=== PATIENT | female | born 1955 | race Hispanic/Latino ===

== ENCOUNTER → 2018-05-03 | Outpatient (CLI) | payer MEDICARE ==
[~2018-05-03] VITALS: Ht 152.4 cm; Wt 73.9 kg
[~2018-05-03] MED LIST: AMLO5TAB5 PO; ASPI-1197 PO; FURO-152 PO; GEMF600T5 PO; INSU100I3 SQ; INSU3INS5 SQ; METO100T7 PO; REGADENOSON 0.4 MG/5 ML PF SYG IVP SCH; SIMV40TA59 PO
== END | disposition home or self-care (01) ==
LOC: SHCH 08:18
PROVIDERS: ATTEND Internal Medicine Cardiovascular Disease
DX: R06.02 Shortness of breath (principal)
CPT/HCPCS: 78452; 93017; 96374; A9500 ×2; J2785

== ENCOUNTER → 2019-06-04 | Outpatient (CLI) | payer MEDICARE ==
[~2019-06-04] MED LIST changes: -REGADENOSON 0.4 MG/5 ML PF SYG IVP SCH
== END | disposition home or self-care (01) ==
LOC: SHCH 09:25
PROVIDERS: ATTEND Internal Medicine Cardiovascular Disease
DX: I87.2 Venous insufficiency (chronic) (peripheral) (principal); K21.9 Gastro-esophageal reflux disease without esophagitis
CPT/HCPCS: 93970

== ENCOUNTER 2019-06-05 09:24 | Emergency (ER) | payer MEDICARE ==
[2019-06-05 10:05] LABS: BASOPHILS % (AUTO) 0.8 % (0.0-5.0); EOSINOPHILS % (AUTO) 4.2 % (0.0-8.0); HEMATOCRIT 35.6 % (36-48); MEAN CORPUSCULAR HEMOGLOBIN 28.8 pg (27.0-33.0); MEAN CORPUSCULAR HGB CONC 32.6 g/dL (32.0-36.0); MEAN CORPUSCULAR VOLUME 88.3 fL (79-99); NEUTROPHILS % (AUTO) 67.7 % (40.0-77.0); PLATELET COUNT (AUTO) 197 K/uL (130-400); RED BLOOD CELL COUNT(AUTO) 4.03 MIL/uL (4.00-5.50); RED CELL DISTRIBUTION WIDTH 14.4 % (11.0-15.5); WHITE BLOOD COUNT (AUTO) 6.2 K/uL (4.8-10.8)
[2019-06-05 10:16] LABS: CREATININE 2.7 mg/dL (0.5-1.5); POTASSIUM 3.1 mmol/L (3.5-5.1)
[2019-06-05 10:18] LABS: INR 1.06 (0.85-1.15); PARTIAL THROMBOPLASTIN TIME 27.4 SEC (26.3-35.5); PROTHROMBIN TIME 11.4 SEC (9.6-11.6)
[2019-06-05 10:21] LABS: ALBUMIN 2.9 g/dL (3.5-5.0); BILIRUBIN,TOTAL 0.7 mg/dL (0.2-1.0); TOTAL PROTEIN, SERUM 8.3 g/dL (6.0-8.3)
--- NOTE | 2019-06-05 16:25 | NUR ---
U/S GD PARACENTESIS PROCEDURE PERFORMED BY DR Chloe BLACK. PUNCTURE SITE RLQ AND PATIENT TOLERATED PROCEDURE WELL. TOTAL REMOVED 8.4 LITERS OF CLOUDY YELLOW FLUID. END OF PROCEDURE AT 1615. CATHETER REMOVED AND DRESSING APPLIED. NO BLEEDING NOTED. REPORT GIVEN TO Fernando FTICH RN AND PATIENT TRANSPORTED TO ED 13 VIA STRETCHER AT 1625. AAO X3 WITH NO C/O PAIN. ALBUMIN 25% 50 GRAMS IV GIVEN PER [facility] ALBUMIN PROTOCOL. SPECIMEN SENT TO LAB.
[2019-06-05] MEDS ORDERED: ALBUMIN (HUMAN) 25% 200 ML IV ONE (16:38)
[2019-06-05 17:50] LABS: APPEARANCE BODY FLUID CLEAR (CLEAR); BODY FLUID RBC 89 /cu. mm.; BODY FLUID WBC 115 /cu. mm.; COLOR,BODY FLUID YELLOW (LT YELLOW); SPECIMENTYPE,BODY FLUID ASCITES; TOTAL VOLUME,BODY FLUID 8400 mL
[2019-06-05 18:58] LABS: BF LYMPHOCYTE 13 %; BF MESOTHELIAL 1 %; BF MONOCYTE 3 %; BF OTHER CELLS 5
== END 2019-06-05 18:05 | disposition home or self-care (01) ==
LOC: EDH 09:24
DX: R18.8 Other ascites (principal); K74.69 Other cirrhosis of liver; I25.10 Atherosclerotic heart disease of native coronary artery without angina pectoris; E11.9 Type 2 diabetes mellitus without complications; E78.00 Pure hypercholesterolemia, unspecified; I10 Essential (primary) hypertension; K21.9 Gastro-esophageal reflux disease without esophagitis; Z88.2 Allergy status to sulfonamides
CPT/HCPCS: 36415; 49083; 70450; 71045; 74176; 80053; 82042; 82105; 85025; 85610; 85730; 87071; 87205; 89051; 93005; 96365; 99285; A4215; P9046

== ENCOUNTER → 2019-07-11 | Outpatient (CLI) | payer MEDICARE ==
[~2019-07-11] MED LIST changes: +ALBUMIN (HUMAN) 25% 200 ML IV SCH
[2019-07-11 08:13] LABS: EOSINOPHILS % (AUTO) 7.1 % (0.0-8.0); HEMATOCRIT 38.1 % (36-48); LYMPHOCYTES % (AUTO) 17.3 % (21.0-51.0); MEAN CORPUSCULAR HEMOGLOBIN 29.3 pg (27.0-33.0); MEAN CORPUSCULAR VOLUME 91.4 fL (79-99); MONOCYTES % (AUTO) 9.1 % (3.0-13.0); NEUTROPHILS % (AUTO) 64.7 % (40.0-77.0); PLATELET COUNT (AUTO) 201 K/uL (130-400); RED BLOOD CELL COUNT(AUTO) 4.17 MIL/uL (4.00-5.50); RED CELL DISTRIBUTION WIDTH 14.3 % (11.0-15.5); WHITE BLOOD COUNT (AUTO) 7.2 K/uL (4.8-10.8)
[2019-07-11 08:28] LABS: INR 0.99 (0.85-1.15); PROTHROMBIN TIME 10.7 SEC (9.6-11.6)
[2019-07-11 08:33] LABS: ALBUMIN 3.1 g/dL (3.5-5.0); BILIRUBIN,TOTAL 0.5 mg/dL (0.2-1.0); CREATININE 3.5 mg/dL (0.5-1.5); POTASSIUM 4.4 mmol/L (3.5-5.1); TOTAL PROTEIN, SERUM 8.4 g/dL (6.0-8.3)
--- NOTE | 2019-07-11 08:55 | NUR ---
U/S GD PARACENTESIS PROCEDURE PERFORMED BY DR. CERVANTES. PUNCTURE SITE RIGHT LOWER QUADRANT OF ABDOMEN AND PATIENT TOLERATED PROCEDURE WELL. TOTAL REMOVED 7.1 LITERS OF CLOUDY YELLOW FLUID. END OF PROCEDURE AT 0920. CATHETER REMOVED AND DRESSING APPLIED. NO BLEEDING NOTED. ALBUMIN 25% 50 GRAMS GIVEN DURING PROCEDURE PER [facility]UMIN PROTOCOL. RIGHT FOREARM PIV DC'D, BANDAID APPLIED, DRESSING DRY AND INTACT. DISCHARGE INSTRUCTIONS GIVEN TO PATIENT. PATIENT VERBALIZED UNDERSTANDING. PT DISCHARGED AMBULATORY, STABLE, AAO X3 WITH NO C/O PAIN. SPECIMEN SENT TO LAB.
[2019-07-11 13:35] LABS: ALBUMIN,BODY FLUID 2.3 g/dL
[2019-07-11 14:07] LABS: APPEARANCE BODY FLUID CLEAR (CLEAR); COLOR,BODY FLUID YELLOW (LT YELLOW); SPECIMENTYPE,BODY FLUID ASCITES
[2019-07-11 14:08] LABS: BODY FLUID RBC 210 /cu. mm.; BODY FLUID WBC 128 /cu. mm.; TOTAL VOLUME,BODY FLUID 7100 mL
[2019-07-11 14:13] LABS: BF LYMPHOCYTE 4 %; BF MESOTHELIAL 87 %; BF MONOCYTE 5 %
== END | disposition home or self-care (01) ==
LOC: RAH 07:22
PROVIDERS: ATTEND Internal Medicine Gastroenterology
DX: R18.8 Other ascites (principal); E11.22 Type 2 diabetes mellitus with diabetic chronic kidney disease; I12.0 Hypertensive chronic kidney disease with stage 5 chronic kidney disease or end stage renal disease; N18.6 End stage renal disease; E78.5 Hyperlipidemia, unspecified; I25.10 Atherosclerotic heart disease of native coronary artery without angina pectoris; Z79.899 Other long term (current) drug therapy; Z79.82 Long term (current) use of aspirin; Z86.010 Personal history of colon polyps; Z87.19 Personal history of other diseases of the digestive system; Z95.1 Presence of aortocoronary bypass graft
CPT/HCPCS: 36415; 49083; 80053; 82042; 84157; 85025; 85610; 87071; 87205; 89051; A4215; P9046; 96365

== ENCOUNTER → 2019-09-05 | Outpatient (CLI) | payer MEDICARE ==
[~2019-09-05] MED LIST changes: +ALBUMIN (HUMAN) 25% 200 ML IV ONE; -ALBUMIN (HUMAN) 25% 200 ML IV SCH; +APIX2.5T PO; +AZIT500T2 PO; +DEXA6TAB PO
[2019-09-05 08:29] LABS: HEMATOCRIT 34.4 % (36-48); MEAN CORPUSCULAR HEMOGLOBIN 29.1 pg (27.0-33.0); MEAN CORPUSCULAR HGB CONC 31.7 g/dL (32.0-36.0); PLATELET COUNT (AUTO) 195 K/uL (130-400); RED BLOOD CELL COUNT(AUTO) 3.74 MIL/uL (4.00-5.50); WHITE BLOOD COUNT (AUTO) 6.7 K/uL (4.8-10.8)
[2019-09-05 08:43] LABS: INR 0.99 (0.85-1.15); PROTHROMBIN TIME 10.7 SEC (9.6-11.6)
[2019-09-05 09:05] LABS: BASOPHILS % (MANUAL) 2 % (0-2); EOSINOPHILS % (MANUAL) 6 % (1-6); LYMPHOCYTES % (MANUAL) 18 % (22-44); MONOCYTES % (MANUAL) 4 % (2-9); SEGMENTED NEUTROPHILS % 70 % (40-70)
[2019-09-05 09:06] LABS: MAN.DIFF COMMENT-IMPRESSION MANUAL DIFFERENTIAL; PLATELET MORPHOLOGY COMMENT ADEQUATE
--- NOTE | 2019-09-05 09:30 | NUR ---
U/S GD PARACENTESIS PROCEDURE PERFORMED BY DR. ANTONIO. PUNCTURE SITE RIGHT LOWER QUADRANT OF ABDOMEN AND PATIENT TOLERATED PROCEDURE WELL. TOTAL REMOVED 5 LITERS OF CLOUDY YELLOW FLUID. END OF PROCEDURE AT 1000. CATHETER REMOVED AND DRESSING APPLIED. NO BLEEDING NOTED. ALBUMIN 25% 50 GRAMS GIVEN DURING PROCEDURE [place] [facility]. RIGHT WRIST PIV DC'D, BANDAID APPLIED, DRESSING DRY AND INTACT. DISCHARGE INSTRUCTIONS GIVEN TO PATIENT. PATIENT VERBALIZED UNDERSTANDING. PT DISCHARGED VIA W/C, STABLE, AAO X3 WITH NO C/O PAIN. SPECIMEN SENT TO LAB.
[2019-09-05 09:34] LABS: ALBUMIN 3.8 g/dL (3.5-5.0); BILIRUBIN,TOTAL 0.4 mg/dL (0.2-1.0); POTASSIUM 4.4 mmol/L (3.5-5.1); TOTAL PROTEIN, SERUM 8.7 g/dL (6.0-8.3)
[2019-09-05 17:53] LABS: SPECIMENTYPE,BODY FLUID ASCITES
[2019-09-05 17:54] LABS: APPEARANCE BODY FLUID SLIGHTLY CLOUDY (CLEAR); COLOR,BODY FLUID DARK YELLOW (LT YELLOW); TOTAL VOLUME,BODY FLUID 5000 mL
[2019-09-05 17:57] LABS: BODY FLUID WBC 92 /cu. mm.
[2019-09-05 17:59] LABS: BODY FLUID RBC 598 /cu. mm.
[2019-09-05 18:26] LABS: BF LYMPHOCYTE 37 %; BF MONOCYTE 1 %; BF OTHER CELLS 18
[2019-09-06 08:13] LABS: HEPATITIS A ANTIBODY IGM Negative (Negative); HEPATITIS Bs ANTIGEN SCREEN P Negative (Negative)
== END | disposition home or self-care (01) ==
LOC: RAH 07:22
PROVIDERS: ATTEND Internal Medicine Gastroenterology
DX: R18.8 Other ascites (principal); I25.10 Atherosclerotic heart disease of native coronary artery without angina pectoris; I12.0 Hypertensive chronic kidney disease with stage 5 chronic kidney disease or end stage renal disease; E11.22 Type 2 diabetes mellitus with diabetic chronic kidney disease; N18.6 End stage renal disease; E78.5 Hyperlipidemia, unspecified; R93.3 Abnormal findings on diagnostic imaging of other parts of digestive tract; Z79.82 Long term (current) use of aspirin; Z79.899 Other long term (current) drug therapy; Z95.1 Presence of aortocoronary bypass graft; Z86.010 Personal history of colon polyps
CPT/HCPCS: 36415; 49083; 80053; 82172; 82247; 82977; 83010; 83883; 84460; 85025; 85610; 86304; 86704; 86706; 86708; 86709; 87071; 87205; 87340; 87520; 88112; 88305; 89051; 96365; A4215; P9046

== ENCOUNTER 2019-09-18 08:50 | Inpatient (IN) | payer MEDICARE ==
[~2019-09-18] VITALS: Ht 149.9 cm; Wt 61.4 kg
[~2019-09-18 08:50] MED LIST changes: -ALBUMIN (HUMAN) 25% 200 ML IV ONE; -APIX2.5T PO; -AZIT500T2 PO; -DEXA6TAB PO
[2019-09-18] MEDS ORDERED: METHYLPREDNISOLONE SOD SUCC 40MG/ML 1ML ONE (09:55)
[2019-09-18] MEDS ORDERED: ONDANSETRON HCL 4 MG/2 ML VIAL ONE ×2 (09:55→22:29)
[2019-09-18] MEDS ORDERED: CEFTRIAXONE SODIUM 2 GM VIAL ONE (09:56)
[2019-09-18 10:35] LABS: BASOPHILS % (AUTO) 0.2 % (0.0-5.0); MEAN CORPUSCULAR HEMOGLOBIN 29.8 pg (27.0-33.0)
[2019-09-18 10:39] LABS: HEMATOCRIT 34.7 % (36-48); LYMPHOCYTES % (AUTO) 10.7 % (21.0-51.0); MONOCYTES % (AUTO) 9.5 % (3.0-13.0); NEUTROPHILS % (AUTO) 78.8 % (40.0-77.0); PLATELET COUNT (AUTO) 151 K/uL (130-400); RED BLOOD CELL COUNT(AUTO) 3.73 MIL/uL (4.00-5.50); RED CELL DISTRIBUTION WIDTH 14.1 % (11.0-15.5); WHITE BLOOD COUNT (AUTO) 5.1 K/uL (4.8-10.8)
[2019-09-18 10:42] LABS: CARBON DIOXIDE 25 mmol/L (21-32); CHLORIDE 95 mmol/L (101-111); CREATININE 5.4 mg/dL (0.5-1.5); GLOMERULAR FILTR. RATE CALC 9 mL/min (>60); GLUCOSE,RANDOM 119 mg/dL (70-105); POTASSIUM 4.9 mmol/L (3.5-5.1); SODIUM SERUM 136 mmol/L (136-145); UREA NITROGEN, BLOOD 40 mg/dL (7-18)
[2019-09-18 10:44] LABS: PROTHROMBIN TIME 10.8 SEC (9.6-11.6)
[2019-09-18 10:57] LABS: ALANINE AMINOTRANSFERASE 24 U/L (12-78); ALBUMIN 3.6 g/dL (3.5-5.0); ASPARTATE AMINOTRANSFERASE 45 U/L (10-37); BILIRUBIN,TOTAL 0.4 mg/dL (0.2-1.0); CREATINE KINASE, TOTAL 33 U/L (21-232); MYOGLOBIN 125 ng/mL (10-92); TOTAL PROTEIN, SERUM 7.7 g/dL (6.0-8.3); TROPONIN I < 0.04 ng/mL (0.00-0.06)
[2019-09-18] MEDS ORDERED: ERGOCALCIFEROL (VITAMIN D2) 50,000 UNIT CAPSULE PO SCH (12:30)
[2019-09-18] MEDS ORDERED: DOXYCYCLINE 100MG+NS 250ML IV SCH (12:30)
[2019-09-18] MEDS ORDERED: ERGOCALCIFEROL (VITAMIN D2) 50,000 UNIT CAPSULE ONE (13:24)
[2019-09-18] MEDS ORDERED: DOXYCYCLINE 100MG+NS 250ML 250 ML IV ONE (13:25)
[2019-09-18] MEDS: METHYLPREDNISOLONE SOD SUCC 40MG/ML 1ML IVP SCH ×2 (14:00→21:00)
[2019-09-18 16:18] LABS: APPEARANCE,URINE Cloudy (CLEAR); BILIRUBIN,URINE Negative (NEGATIVE); COLOR,URINE Yellow (YELLOW); GLUCOSE, URINE (UA) Negative (NEGATIVE); KETONES,URINE Trace mg/dL (NEGATIVE); LEUKOCYTE ESTERASE ,URINE Trace (NEGATIVE); NITRATE,URINE Negative (NEGATIVE); OCCULT BLOOD,URINE Negative (NEGATIVE); PH,URINE 7.5 (5.0-8.0); PROTEIN,URINE 300 mg/dL (NEGATIVE)
[2019-09-18 16:37] LABS: RBC,URINE 0-1 /HPF (0-1)
[2019-09-18 16:38] LABS: BACTERIA,URINE Few /HPF (None Seen); SQUAMOUS EPITHELIAL CELL,UR Moderate /HPF (0-2)
[2019-09-18] MEDS ORDERED: GLUCAGON 1MG KIT 1 MG ML IM PRN (19:00)
[2019-09-18] MEDS ORDERED: DEXTROSE 50%-WATER 50 ML DISP.SYRIN IV PRN (19:00)
[2019-09-18] MEDS: INSULIN HUMULIN R 100 UNIT/ML 3ML SQ SCH (21:00)
[2019-09-18] MEDS ORDERED: TRAMADOL HCL 50 MG TABLET ONE (22:30)
[2019-09-19] MEDS: DOXYCYCLINE 100MG+NS 250ML 250 ML IV SCH ×2 (00:30→12:59)
[2019-09-19] MEDS: CEFTRIAXONE SODIUM 1 GM IVP SCH ×2 (00:30→12:58)
[2019-09-19 05:04] LABS: BASOPHILS % (AUTO) 0.3 % (0.0-5.0); HEMATOCRIT 33.5 % (36-48); LYMPHOCYTES % (AUTO) 15.5 % (21.0-51.0); MEAN CORPUSCULAR HEMOGLOBIN 29.6 pg (27.0-33.0); MEAN CORPUSCULAR HGB CONC 32.2 g/dL (32.0-36.0); MEAN CORPUSCULAR VOLUME 91.8 fL (79-99); MONOCYTES % (AUTO) 11.9 % (3.0-13.0); NEUTROPHILS % (AUTO) 71.2 % (40.0-77.0); PLATELET COUNT (AUTO) 150 K/uL (130-400); RED BLOOD CELL COUNT(AUTO) 3.65 MIL/uL (4.00-5.50); RED CELL DISTRIBUTION WIDTH 13.8 % (11.0-15.5); WHITE BLOOD COUNT (AUTO) 3.6 K/uL (4.8-10.8)
[2019-09-19 05:28] VITALS: BP 135/59
[2019-09-19 05:31] LABS: ALBUMIN 2.8 g/dL (3.5-5.0); BILIRUBIN,TOTAL 0.5 mg/dL (0.2-1.0); CREATININE 3.8 mg/dL (0.5-1.5); POTASSIUM 4.4 mmol/L (3.5-5.1); TOTAL PROTEIN, SERUM 7.3 g/dL (6.0-8.3)
[2019-09-19] MEDS: INSULIN HUMULIN R 100 UNIT/ML 3ML SQ SCH ×4 (05:41→20:32)
[2019-09-19 08:00] VITALS: BP 104/47
[2019-09-19] MEDS: ZINC SULFATE 220 CAPSULE PO SCH (08:17)
[2019-09-19] MEDS: ASCORBIC ACID 500 MG TAB PO SCH (08:17)
[2019-09-19] MEDS: ENOXAPARIN SODIUM 60 MG/0.6 ML SQ SCH (08:18)
[2019-09-19] MEDS: METHYLPREDNISOLONE SOD SUCC 40MG/ML 1ML IVP SCH ×3 (08:19→20:31)
[2019-09-19] MEDS ORDERED: ENOXAPARIN SODIUM 40 MG/0.4 ML SYRINGE SQ SCH (09:00)
--- NOTE | 2019-09-19 09:20 | NUR ---
CHART CHECK COMPLETED. Pt IS A 63 Y.O. FEMALE ADMITTED SECONDARY TO SUSPECTED COVID 19, ESRD ON HD. Pt HAS A PAST MEDICAL HISTORY SIGNIFICANT FOR CAD,DM,ESRD-HD,HLD, HTN, LAVA. Pt CURRENTLY WITH NO DIET ORDERED. PLEASE REQUEST SKILLED SPEECH/SWALLOW EVALUATION IF Pt PRESENTS WITH +S/S OF ASPIRATION. Addendum: 09/19/19 at [address] Amended: Links added.
[2019-09-19] MEDS ORDERED: ONDANSETRON HCL 4 MG/2 ML VIAL ONE (09:27)
[2019-09-19 11:30] VITALS: BP 108/47
--- NOTE | 2019-09-19 14:43 | NUR ---
DC Plan Patient is pending COVID results. Per Face sheet, next of kin is Jr Diamond (ph: [phone]). CM called Jr with no answer. Left VM to call CM back to [phone]. Per chart review, prior to admission, patient lived with spouse and independently performed ADLs. Anticipate dcp to home w/ possible oxygen vs no dc needs. CM to continue to follow as needs arise. Addendum: 09/19/19 at 1445 by GREGG FORTE CM Amended: Links added.
[2019-09-19 15:30] VITALS: BP 108/43
--- NOTE | 2019-09-19 18:11 | NUR ---
DC Plan update Patient's spouse Jr called CM back and provided info needed for initial assessment. Gave telephone consent for any in-network DME if O2 is needed upon discharge. CD Addendum: 09/19/19 at 1817 by GREGG FORTE CM Amended: Links added.
[2019-09-19 19:00] VITALS: BP 138/69
[2019-09-19] MEDS: ACETAMINOPHEN 325 MG TAB PO PRN (22:00)
[2019-09-19] MEDS: ONDANSETRON HCL 4 MG/2 ML VIAL IVP PRN (22:00)
[2019-09-19 23:00] VITALS: BP 115/52
[2019-09-20 03:00] VITALS: BP 114/54
[2019-09-20] MEDS: INSULIN HUMULIN R 100 UNIT/ML 3ML SQ SCH ×4 (05:59→20:50)
[2019-09-20 06:33] LABS: LYMPHOCYTES % (AUTO) 8.3 % (21.0-51.0); MEAN CORPUSCULAR HEMOGLOBIN 29.6 pg (27.0-33.0); MEAN CORPUSCULAR HGB CONC 32.3 g/dL (32.0-36.0); MEAN CORPUSCULAR VOLUME 91.6 fL (79-99); MONOCYTES % (AUTO) 4.7 % (3.0-13.0); NEUTROPHILS % (AUTO) 86.2 % (40.0-77.0); PLATELET COUNT (AUTO) 189 K/uL (130-400); RED BLOOD CELL COUNT(AUTO) 3.82 MIL/uL (4.00-5.50); RED CELL DISTRIBUTION WIDTH 13.7 % (11.0-15.5); WHITE BLOOD COUNT (AUTO) 4.7 K/uL (4.8-10.8)
[2019-09-20 07:10] LABS: ALBUMIN 2.8 g/dL (3.5-5.0); BILIRUBIN,DIRECT 0.1 mg/dL (0.0-0.3); BILIRUBIN,TOTAL 0.4 mg/dL (0.2-1.0); CREATININE 5.3 mg/dL (0.5-1.5); CRP QUANTITATIVE 51.5 mg/L (0.00-9.0); MAGNESIUM 2.3 mg/dL (1.80-2.40); PHOSPHORUS 8.4 mg/dL (2.5-4.9); POTASSIUM 5.1 mmol/L (3.5-5.1); TOTAL PROTEIN, SERUM 7.3 g/dL (6.0-8.3)
[2019-09-20 08:00] VITALS: BP 132/56
[2019-09-20] MEDS: CEFTRIAXONE SODIUM 1 GM IVP SCH ×2 (08:54→20:48)
[2019-09-20] MEDS: METHYLPREDNISOLONE SOD SUCC 40MG/ML 1ML IVP SCH ×4 (08:54→20:49)
[2019-09-20] MEDS: ASCORBIC ACID 500 MG TAB PO SCH (08:55)
[2019-09-20] MEDS: ZINC SULFATE 220 CAPSULE PO SCH (08:55)
[2019-09-20] MEDS: ACETAMINOPHEN 325 MG TAB PO PRN (08:56)
[2019-09-20] MEDS: ENOXAPARIN SODIUM 60 MG/0.6 ML SQ SCH (08:57)
[2019-09-20] MEDS ORDERED: DOXYCYCLINE 100MG+NS 250ML 250 ML IV SCH (09:00)
[2019-09-20 09:12] LABS: HEPATITIS A ANTIBODY IGM Negative (Negative); HEPATITIS B CORE IGM Negative (Negative); HEPATITIS Bs ANTIGEN SCREEN P Negative (Negative)
[2019-09-20 11:30] VITALS: BP 115/53
[2019-09-20 15:30] VITALS: BP 108/55
[2019-09-20] MEDS ORDERED: TRAMADOL HCL 50 MG TABLET ONE (18:34)
[2019-09-20 19:00] VITALS: BP 117/61
[2019-09-20] MEDS: DOXYCYCLINE HYCLATE 100 MG TABLET PO SCH (20:48)
[2019-09-20 23:00] VITALS: BP 128/49
[2019-09-20] MEDS: ONDANSETRON HCL 4 MG/2 ML VIAL IVP PRN (23:24)
[2019-09-21] MEDS: TRAMADOL HCL 50 MG TABLET PO PRN ×4 (01:02→20:13)
[2019-09-21 03:00] VITALS: BP 120/60
[2019-09-21 04:34] LABS: BASOPHILS % (AUTO) 0.1 % (0.0-5.0); HEMATOCRIT 37.2 % (36-48); LYMPHOCYTES % (AUTO) 3.9 % (21.0-51.0); MEAN CORPUSCULAR HGB CONC 33.3 g/dL (32.0-36.0); MEAN CORPUSCULAR VOLUME 90.1 fL (79-99); MONOCYTES % (AUTO) 4.8 % (3.0-13.0); NEUTROPHILS % (AUTO) 90.7 % (40.0-77.0); PLATELET COUNT (AUTO) 180 K/uL (130-400); RED BLOOD CELL COUNT(AUTO) 4.13 MIL/uL (4.00-5.50); RED CELL DISTRIBUTION WIDTH 13.6 % (11.0-15.5); WHITE BLOOD COUNT (AUTO) 7.9 K/uL (4.8-10.8)
[2019-09-21 04:46] LABS: ALBUMIN 3.1 g/dL (3.5-5.0); BILIRUBIN,TOTAL 0.4 mg/dL (0.2-1.0); CREATININE 4.2 mg/dL (0.5-1.5); CRP QUANTITATIVE 32.8 mg/L (0.00-9.0); POTASSIUM 4.4 mmol/L (3.5-5.1); TOTAL PROTEIN, SERUM 7.8 g/dL (6.0-8.3)
[2019-09-21] MEDS: METHYLPREDNISOLONE SOD SUCC 40MG/ML 1ML IVP SCH ×3 (05:36→20:17)
[2019-09-21] MEDS: INSULIN HUMULIN R 100 UNIT/ML 3ML SQ SCH ×4 (06:49→20:18)
[2019-09-21 08:00] VITALS: BP 141/73
[2019-09-21] MEDS: ASCORBIC ACID 500 MG TAB PO SCH (09:30)
[2019-09-21] MEDS: DOXYCYCLINE HYCLATE 100 MG TABLET PO SCH ×2 (09:30→20:17)
[2019-09-21] MEDS: ZINC SULFATE 220 CAPSULE PO SCH (09:30)
[2019-09-21] MEDS: CEFTRIAXONE SODIUM 1 GM IVP SCH ×2 (09:30→20:17)
[2019-09-21] MEDS: ENOXAPARIN SODIUM 60 MG/0.6 ML SQ SCH (09:31)
--- NOTE | 2019-09-21 09:39 | NUR ---
OXYGEN, DC PLANNING AND HD CHAIR PATIENT QUALIFIES FOR HOME OXYGEN PER [facility] THIS MORNING PAPERWORK PREPARED FOR [facility], ARIC OBTAINED. EXPLAINED OT PATIENT AND SPOUSE THAT [facility] COULD LEND TRANSPORT TANK FOR RIDE HOME AND CONCENTRATOR UNTIL INSURANCE /AHP COORDINATE DELIVERY OTE MADE OF PATIENTS ESRD STATUS IN MD NOTES . TTS SCHEDULE AT [facility] . HD CENTER CLOSED TODAY , UNABLE TO VERIFY NEW CHAIR DATE AND TIME WITH RENAL CARE. CALL BACK TO ADVISED PATIENT SHE MAY NEED TO CHANGE SCHEDULE. HAVE TO VERIFY A CHAIR TIME FOR HER PRIOR TO DISCHARGE FAXED O2 REFERRAL, CM TO FOLLOW
[2019-09-21 11:30] VITALS: BP 150/65
[2019-09-21] MEDS: ONDANSETRON HCL 4 MG/2 ML VIAL IVP PRN (11:55)
[2019-09-21 15:30] VITALS: BP 126/69
[2019-09-21 19:15] VITALS: BP 135/61
[2019-09-21 23:30] VITALS: BP 117/51
[2019-09-22] MEDS: TRAMADOL HCL 50 MG TABLET PO PRN ×3 (02:30→18:13)
[2019-09-22 03:10] VITALS: BP 128/53
[2019-09-22] MEDS: METHYLPREDNISOLONE SOD SUCC 40MG/ML 1ML IVP SCH ×3 (05:43→20:21)
[2019-09-22] MEDS: INSULIN HUMULIN R 100 UNIT/ML 3ML SQ SCH ×4 (06:32→20:34)
[2019-09-22 08:00] VITALS: BP 151/71
[2019-09-22] MEDS: ENOXAPARIN SODIUM 60 MG/0.6 ML SQ SCH (09:17)
--- NOTE | 2019-09-22 09:17 | NUR ---
TRAMADOL GIVEN TO PATIENT AT 0917 FOR CHRONIC BACK. SHE WAS UPSET THAT IT WASN'T GIVEN EXACTLY WHEN IT WAS DUE. THIS NURSE DID STATE THAT THIS IS A PRN MEDICATION AND SHE MUST CALL AND ASK FOR IT. PATIENT TAKES TYLENOL AT HOME FOR HER CHRONIC BACK PAIN. THIS NURSE DID ALSO GIVE HER SOME ICEPACKS UPON REQUEST FOR PAIN.
[2019-09-22] MEDS: ASCORBIC ACID 500 MG TAB PO SCH (09:18)
[2019-09-22] MEDS: CEFTRIAXONE SODIUM 1 GM IVP SCH ×2 (09:18→20:21)
[2019-09-22] MEDS: ZINC SULFATE 220 CAPSULE PO SCH (09:18)
[2019-09-22] MEDS: DOXYCYCLINE HYCLATE 100 MG TABLET PO SCH ×2 (09:18→20:22)
--- NOTE | 2019-09-22 11:01 | NUR ---
DC PLAN CALLED 1. RENAL YANDEL AWARE PATIENT IS COVID POSITIVE. SAID WILL BE 4TH SHIFT [facility]. FOR PATIENT TO CALL CENTER WHEN HOME SO THAT THEY CAN BE GIVEN CHAIR TIME. SINCE SHE IS MOVING TO [facility] NEED FOR PATIENT TO BE DIALYSED TODAY. LET UNIQUE CHARGE NURSE KNOW OF CONVERSATION. 2. [facility] PATIENT CALLED SAID THEY RECEIVED PAPERWORK FOR AND HAD SUBMITTED TO INSURANCE FOR APPROVAL. CM WILL CONTINUE TO FOLLOW. IN THE MEAN TIME PATIENT WILL BE GIVEN [employer] EQUIPMENT TO RETURN ONCE RECEIVES [facility] PATIENT DME. Addendum: 09/22/19 at 1104 by SHENA PHAM RN CM Amended: Links added.
[2019-09-22 11:30] VITALS: BP 127/71
[2019-09-22] MEDS ORDERED: DEXA6TAB PO (13:15)
[2019-09-22] MEDS ORDERED: APIX2.5T PO (13:15)
[2019-09-22] MEDS ORDERED: AZIT500T2 PO (13:17)
--- NOTE | 2019-09-22 15:20 | NUR ---
THIS NURSE WENT IN TO LET PATIENT KNOW SHE WOULD BE DISCHARGED ONCE DIALYSIS WAS COMPLETED. PATIENT STATED SHE WANTED DIALYSIS DONE NOW OR ELSE SHE WANTED TO LEAVE. THIS NURSE DID EXPLAIN SHE NEEDED HOME OXYGEN SET UP WELL. CALLED AND SPOKE TO MEDICAID SPECIALIST SHENA WHO STATES SHE WILL GO IN AND TALK TO PATIENT.
[2019-09-22 15:30] VITALS: BP 134/63
--- NOTE | 2019-09-22 16:48 | NUR ---
DC PLAN NURSE CALLED SAID PATIENT WANTED TO LEAVE. WENT TO SPEAK WITH PATIENT. INFORMED PATIENT STILL WORKING ON O2 AND ON TRYING TO GET DIALYSIS FOR HER TODAY. SPOKE TO NURSE AND TO CHARGE NURSE, GASKET FORMER TO INFORM OF NEEDING DIALYSIS. CALLED MY SELF TO BOTH NUMBERS LET CM DIRECTOR KNOW WELL THAT PATIENT PENDING DIALYSIS TO DISCHARGE. PATIENT NOTIFIED THAT STILL NEED DIALYSIS. GAVE HER INFO REGARDING NEW CHAIR TIME. MWF 4TH SHIFT SHE IS TO CALL ONCE HOME TO GET CHAIR TIME. LET NEW NURSE JUANCARLOS KNOW OF CONVERSATIONS. [facility] FROM [facility] AND CONCENTRATOR. [facility] PATIENT STILL PENDING. Addendum: 09/22/19 at 1652 by SHENA PHAM RN Amended: Links added.
[2019-09-22 19:43] VITALS: BP 121/57
[2019-09-22 23:32] VITALS: BP 131/68
--- NOTE | 2019-09-23 00:01 | NUR ---
NURSES AIDE CALLED OUT STATING THE PATIENT WAS SATTING 80% WITH THE PULSE OX. PATIENT WAS ON 4L NASAL CANNULA. NO SIGNS OF LABORED BREATHING OR RESPIRATORY DISTRESS AT THIS TIME. PATIENT IS ALERT AND ORIENTED X4. INCREASED OXYGEN VIA NASAL CANNULA AND ENCOURAGED DEEP BREATHS. PATIENT WENT UP TO 85%. PLACED PATIENT ON A 15L NON REBREATHER AND IS SATTING AT 96% AT THIS TIME. PATIENT DENIES ANY SHORTNESS OF BREATH. WILL CONTINUE TO MONITOR CLOSELY.
[2019-09-23 03:16] VITALS: BP 142/61
[2019-09-23] MEDS: METHYLPREDNISOLONE SOD SUCC 40MG/ML 1ML IVP SCH ×2 (05:30→13:52)
[2019-09-23] MEDS: TRAMADOL HCL 50 MG TABLET PO PRN (05:31)
--- NOTE | 2019-09-23 05:44 | NUR ---
PATIENT STATES THAT SHE WANTS TO GO HOME TODAY. THIS NURSE PLACED PATIENT BACK ON HER NASAL CANNULA AT 6L. PATIENT IS SATTING 90%-92%. PATIENT DOES NOT HAVE ANY LABORED BREATHING OR SHORTNESS OF BREATH AT THIS TIME. WILL CONTINUE TO MONITOR.
[2019-09-23] MEDS: INSULIN HUMULIN R 100 UNIT/ML 3ML SQ SCH ×3 (05:56→16:30)
[2019-09-23 08:00] VITALS: BP 139/61
[2019-09-23] MEDS: ZINC SULFATE 220 CAPSULE PO SCH (08:50)
[2019-09-23] MEDS: CEFTRIAXONE SODIUM 1 GM IVP SCH (08:50)
[2019-09-23] MEDS: ASCORBIC ACID 500 MG TAB PO SCH (08:50)
[2019-09-23] MEDS: ENOXAPARIN SODIUM 60 MG/0.6 ML SQ SCH (08:50)
[2019-09-23] MEDS: DOXYCYCLINE HYCLATE 100 MG TABLET PO SCH (08:50)
[2019-09-23 11:30] VITALS: BP 116/83
--- NOTE | 2019-09-23 14:21 | NUR ---
PT RESTING QUIETLY IN BED AT THIS TIME IN NO APPARENT DISTRESS. VSS. ORDER TO BE DISCHARGED HOME TODAY AFTER DIALYSIS. PT REQUESTED TO DELAY DISCHARGE FOR ABOUT TWO HOURS TO ALLOW HER BODY TO ADJUST FROM DIALYSIS. RESPIRATIONS EVEN AND UNLABORED AT REST. 6L VIA NC, O2 SAT 93-94%. NO LABORED BREATHING OR SHORTNESS OF BREATH NOTED AT THIS TIME. WILL CONTINUE TO MONITOR. SAFETY PRECAUTIONS IN PLACE.
[2019-09-23 15:30] VITALS: BP 138/63
--- NOTE | 2019-09-23 17:00 | NUR ---
PT INQUIRING OF TIME OF DISCHARGE. INFORMED OF WAITING FOR ARRIVAL OF O2 CONCENTRATOR. PATIENT VERBALIZED UNDERSTANDING. REQUESTED PAIN MEDICATION FOR BACK PAIN.
--- NOTE | 2019-09-23 19:52 | NUR ---
PATIENT SIGNED DISCHARGE PAPERWORK. PAPERS GIVEN TO PATIENT. IV REMOVED WITH CATHETER INTACT. PRESSURE HELD TO SITE AND BANDAID IN PLACE WITH NO BLEEDING. PATIENT HAS OXYGEN VIA NASAL CANNULA WITH HOSPITAL OXYGEN TANK SHE IS BORROWING WELL OXYGEN CONCENTRATOR. PATIENT SIGNED PAPERS FOR RETURN OF EQUIPMENT ONCE HOME O2 IS SET UP. PATIENT TAKEN DOWN IN WHEELCHAIR BY CHARGE NURSE AND OLD TESTAMENT PROFESSOR MANUEL
== END 2019-09-23 20:00 | disposition home or self-care (01) | DRG 177 ==
LOC: EDH 08:50 → EDHIP 12:18 → 2AH 09-19 04:14
PROVIDERS: ADMIT Family Medicine; ATTEND Family Medicine
PROC: 5A1D70Z Performance of Urinary Filtration, Intermittent, Less than 6 Hours Per Day (ICD-10-PCS; principal; 2019-09-18)
PROC: 5A1D70Z Performance of Urinary Filtration, Intermittent, Less than 6 Hours Per Day (ICD-10-PCS; 2019-09-20)
PROC: 5A1D70Z Performance of Urinary Filtration, Intermittent, Less than 6 Hours Per Day (ICD-10-PCS; 2019-09-23)
DX: U07.1 COVID-19 (principal); J12.89 Other viral pneumonia; N18.6 End stage renal disease; J96.01 Acute respiratory failure with hypoxia; I12.0 Hypertensive chronic kidney disease with stage 5 chronic kidney disease or end stage renal disease; E11.22 Type 2 diabetes mellitus with diabetic chronic kidney disease; D64.9 Anemia, unspecified; I25.10 Atherosclerotic heart disease of native coronary artery without angina pectoris; E78.5 Hyperlipidemia, unspecified; E11.51 Type 2 diabetes mellitus with diabetic peripheral angiopathy without gangrene; E87.70 Fluid overload, unspecified; Z88.5 Allergy status to narcotic agent; Z91.018 Allergy to other foods; Z91.19 Patient's noncompliance with other medical treatment and regimen; Z99.2 Dependence on renal dialysis; Z82.0 Family history of epilepsy and other diseases of the nervous system; Z82.5 Family history of asthma and other chronic lower respiratory diseases; Z82.3 Family history of stroke; Z83.3 Family history of diabetes mellitus; Z82.49 Family history of ischemic heart disease and other diseases of the circulatory system
CPT/HCPCS: 36415; 71045; 71250; 80048; 80053; 80074; 80076; 81001; 82550; 82728; 82948; 83605; 83615; 83735; 83874; 84100; 84145; 84484; 85025; 85378; 85610; 85730; 86140; 86900; 86901; 87040; 87088; 87426; 90935; 93005; 94760; 99291; G0378; J0696; J1650; J1815; J2405; J2920; J3490